=== PATIENT | female | born 1950 | race Native Hawaiian/Other Pacific Islander ===

== ENCOUNTER 2017-10-21 07:17 | Day surgery (SDC) | payer MEDICARE ==
[2017-10-21 08:24] VITALS: BMI 14.9
[2017-10-21] MEDS ORDERED: Propofol 10 mg/ml Inj (20 ML) ONE (10:54)
[2017-10-21 11:29] VITALS: TEMP 97.1; O2SAT 100
[2017-10-21 12:23] VITALS: BP 146/64; PULSE 69; RESP 23
== END 2017-10-21 12:20 | disposition home or self-care (01) ==
LOC: C.ENDO 07:17
PROVIDERS: ATTEND Internal Medicine Gastroenterology
DX: K29.70 Gastritis, unspecified, without bleeding (principal); R10.13 Epigastric pain
CPT/HCPCS: 43239; 88305; 88342; J2704

== ENCOUNTER 2018-11-29 10:04 | Outpatient (CLI) | payer MEDICARE | END 2018-11-29 10:05 | disposition home or self-care (01) | LOC: C.USIC 10:05 | DX: R51 Headache (principal) ==